=== PATIENT | male | born 1990 | race African-American/Black ===

== ENCOUNTER 2016-10-13 19:22 | Emergency (ER) | payer BC ==
[~2016-10-13] VITALS: Ht 185.4 cm; Wt 74.8 kg
[~2016-10-13 19:22] MED LIST: CLARITIN10 MG; KETOROLAC10 MG PO; NKHM; PHENERGAN25 M1 PO; TOBREX OPHTH S2.5 ML OPH; ULTRAM50 MG PO
== END 2016-10-13 19:36 | disposition home or self-care (01) ==
LOC: ED 19:22
DX: Z20.2 Contact with and (suspected) exposure to infections with a predominantly sexual mode of transmission (principal); F17.200 Nicotine dependence, unspecified, uncomplicated

== ENCOUNTER 2020-11-04 15:25 | Emergency (ER) | payer OTHER ==
[~2020-11-04] VITALS: Ht 185.4 cm; Wt 79.4 kg
[2020-11-04 16:12] LABS: BILIRUBIN Negative (Negative); BLOOD Negative (Negative); CLARITY Clear (Clear); COLOR Yellow (Yellow); GLUCOSE Negative (Negative); KETONE Negative (Negative); LEUKO ESTERASE 2+ (Negative); NITRITE Negative (Negative); PH 6.5 (4.5-8.0)
[2020-11-04] MEDS ORDERED: DOXYCYCLINE100 M3 PO (16:24)
[2020-11-04 16:40] LABS: BACTERIA 1+; EPITHELIAL CELLS 0-2; WBC 51-100 wbc/hpf (0-5)
== END 2020-11-04 21:19 | disposition home or self-care (01) ==
LOC: ED 15:25
PROVIDERS: Nurse Practitioner
DX: Z20.2 Contact with and (suspected) exposure to infections with a predominantly sexual mode of transmission (principal)